=== PATIENT | female | born 1990 | race Caucasian/White ===

== ENCOUNTER 2019-10-17 17:31 | Emergency (ER) | payer BC ==
[~2019-10-17] VITALS: Ht 157.5 cm; Wt 158.8 kg
[2019-10-17] MEDS ORDERED: HYDROCODONE/APAP 10MG-325MG TAB PO ONE ×2 (17:45→20:15)
--- NOTE | 2019-10-17 18:29 | Diagnostic Imaging Report ---
ELBOW LEFT AP LAT -2 views HISTORY: Pain status post fall. COMPARISON: None available. FINDINGS: Bones: Comminuted displaced fracture of the distal humeral diaphysis with butterfly fragment and ventral lateral angulation and mild overriding. Joints: The joint spaces are preserved. Soft tissues: The soft tissues appear unremarkable. IMPRESSION: Comminuted displaced fracture of the distal humeral diaphysis with butterfly fragment and ventral lateral angulation and mild overriding. Signed by: Dr. Claus Jacome M.D. on 10/17/2019 6:27 PM
--- NOTE | 2019-10-17 19:08 | Diagnostic Imaging Report ---
HUMERUS RIGHT 2+VIEWS - 3 views HISTORY: Pain status post fall. COMPARISON: None available. FINDINGS: Bones: Comminuted displaced fracture of the distal humeral diaphysis with butterfly fragment and ventral lateral angulation and mild overriding. Joints: The joint spaces are preserved. Soft tissues: The soft tissues appear unremarkable. IMPRESSION: Comminuted displaced fracture of the distal humeral diaphysis with butterfly fragment and ventral lateral angulation and mild overriding. Signed by: Dr. Claus Jacome M.D. on 10/17/2019 7:05 PM
[2019-10-17 20:41] VITALS: BP 150/108
[2019-10-23] MEDS ORDERED: NORCO 5-325 TA1 EACH PO (14:52)
== END 2019-10-17 21:01 | disposition home or self-care (01) ==
LOC: ER 17:31
DX: S42.301A Unspecified fracture of shaft of humerus, right arm, initial encounter for closed fracture (principal); M25.522 Pain in left elbow; W01.0XXA Fall on same level from slipping, tripping and stumbling without subsequent striking against object, initial encounter; Y92.008 Other place in unspecified non-institutional (private) residence as the place of occurrence of the external cause
CPT/HCPCS: 99283

== ENCOUNTER → 2019-10-24 | Day surgery (SDC) | payer BC ==
[~2019-10-24] MED LIST: ACETAMINOPHEN 1000 MG/100 ML IV ONE; CEFAZOLIN SOD 1 GM/NS 50ML 100 ML IV ONE; DESFLURANE 240 ML BTL INH ONE; DEXAMETHASONE SOD PHOS INJ 4 MG/ML VIAL ONE; FENTANYL CITRATE/PF 100MCG/2 ML INJ ONE; KETOROLAC TROMETHAMINE 30 MG/ML VIAL ONE; LIDOCAINE HCL 2% LOCAL INJ 5 ML SDV VIAL INJ ONE; MIDAZOLAM HCL 2 MG/2 ML VIAL ONE; MORPHINE SULFATE INJ 10 MG/ML ONE; NORCO 5-325 TA1 EACH PO; ONDANSETRON HCL INJ 2MG/ML 2ML 2 MG/ML VIAL ONE; PROPOFOL IV EMULSION 10 MG/ML 20 ML VIAL ONE; ROCURONIUM BROMIDE 10 MG/ML 5ML VIAL ONE; SUCCINYLCHOLINE CHLORIDE 20 MG/ML 10ML VIAL ONE
--- OUTSIDE RECORDS SUMMARY | 2019-10-24 05:33 | XMS REPORT ---
Author 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 Allergies, Adverse Reactions, Alerts This patient has no known allergies or adverse reactions. Medications This patient has no known medications. Results Test Description Test Time Test Comments Text Results Atomic Results Result Comments HUMERUS RIGHT 2+VIEWS 2019-10-17 19:04:00 [facility] [address] [place] [id number] Patient Name: GERONIMO ALEXANDRE MR #: [id number] : 1990 Age/Sex: 29/F Req #: [id number] Adm Physician: Ordered by: CLAUDINE LERNER [employer] Report #: [id number] Location: ER Room/Bed: Procedure: [id number] DX/HUMERUS RIGHT 2+VIEWS Exam Date: 10/17/19 Exam Time: 1820 REPORT STATUS: Signed HUMERUS RIGHT 2+VIEWS - 3 views HISTORY: Pain status post fall. COMPARISON: None available. FINDINGS: Bones: Comminuted displaced fracture of the distal humeral diaphysis with butterfly fragment and ventral lateral angulation and mild overriding. Joints: The joint spaces are preserved. Soft tissues: The soft tissues appear unremarkable. IMPRESSION: Comminuted displaced fracture of the distal humeral diaphysis with butterfly fragment and ventral lateral angulation and mild overriding. Signed by: Dr. Claus Gamez M.D. on 10/17/2019 7:05 PM Dictated By: DEMETRIA GAMEZ MD, MD 04 Transcribed By: ARMIN on 10/17/191904 COPY TO: CLAUDINE LERNER NP ELBOW LEFT AP LAT 2019-10-17 18:18:00 [place] [address] Patient Name: GERONIMO ALEXANDRE MR #: [id number] : 1990 Age/Sex: 29/F Req #: [id number] Adm Physician: Ordered by: CLAUDINE LERNER NP Report #: [id number] Location: ER Room/Bed: Procedure: [id number] DX/ELBOW LEFT AP LAT Exam Date: 10/17/19 Exam Time: 1800 REPORT STATUS: Signed ELBOW LEFT AP LAT -2 views HISTORY: Pain stat us post fall. COMPARISON: None available. FINDINGS: Bones: Comminuted displaced fracture of the distal humeral diaphysis with butterfly fragment and ventral lateral angulation and mild overriding. Joints: The joint spaces are preserved. Soft tissues: The soft tissues appear unremarkable. IMPRESSION: Comminuted displaced fracture of the distal humeral diaphysis with butterfly fragment and ventral lateral angulation and mild overriding. Signed by: Dr. Claus Gamez M.D. on 10/17/2019 6:27 PM Dictated By: DEMETRIA GAMEZ MD, MD 26 Transcribed By: ARMIN on 10/17/191826 COPY TO: CLAUDINE LERNER NP
[2019-10-24 12:00] VITALS: BP 117/64
--- NOTE | 2019-10-24 19:40 | NUR ---
PREOPERATIVE DIAGNOSIS: Left Distal Humerus Shaft Fracture POSTOPERATIVE DIAGNOSIS: Left Distal Humerus Shaft Fracture OPERATIONS PERFORMED: Open reduction and internal fixation of left humerus shaft fracture with allograft, Flouroscopic interpretation SURGEON: Yanelis Stinson DO ANESTHESIA: General EBL: 20 cc TOURNIQUET TIME: 130 Min COMPLICATIONS: None. COMPONENTS: 2 3.5 Lag Screws, [place] 3.5 Variax 7 hole Compression Plate (Broad & Narrow), 7 x 3.5 Locking Screws, 5 x 3.5 Cortical Screws CLINICAL SUMMARY: The patient is a 29 -year-old right-hand dominant female who sustained a mechanical fall resulting in a fracture to the left humeral shaft OPERATION: The patient was brought to the operating table and placed in supine position and administered general anesthetic by the anesthesia. Preoperative antibiotics were provided. Once adequate anesthesia had been obtained, the right upper extremity was prepped and draped in the usual sterile manner. The pa tient received preoperative antibiotics. A sterile tourniquet was placed around the right upper extremity. The upper extremity was then elevated and exsanguinated using an Esmarch dressing. The tourniquet was elevated to 250 mmHg. The distal extent of the deltopectoral approach was extend to the lateral side of the biceps. Care was taken to avoid the radial nerve. It was carefully dissected and protected throughout the procedure. Upon exposure of the fracture site, there was extensive callus formation that required removal to properly orient the fragements. After extensive debridement, the fragments were reduced and fixed with the above mentioned hardware. 5 cc of DBX Bone Putty was placed around the fracture site to augment healing. Tolerable placement of hardware and anatomic reduction of the fracture was obtained. The incision was thoroughly irrigated and homeostasis was maintained with electrocautery. The subcutaneous tissue was closed with a 2-0 vicryl and the skin was closed with a 3-0 monocryl. The skin was cleaned and an aquacel was placed over the incision. 10 cc of local anesthetic was placed within the incision. The arm was placed in a posterior splint. The tourniquet was released. The fingers were immediately pink. The patient was awakened and taken to the recovery room in good condition. There were no operative complications. The patient tolerated the procedure well. Post operatively, the patient was examined and found to be neurovascularly intact.
--- NOTE | 2019-10-24 19:42 | NUR ---
ORTHOPEDIC OPERATIVE NOTE PREOPERATIVE DIAGNOSIS: Left Distal Humerus Shaft Fracture POSTOPERATIVE DIAGNOSIS: Left Distal Humerus Shaft Fracture OPERATIONS PERFORMED: Open reduction and internal fixation of left humerus shaft fracture with allograft, Flouroscopic interpretation SURGEON: Yanelis Stinson DO ANESTHESIA: General EBL: 20 cc TOURNIQUET TIME: 130 Min COMPLICATIONS: None. COMPONENTS: 2 3.5 Lag Screws, [place] 3.5 Variax 7 hole Compression Plate (Broad & Narrow), 7 x 3.5 Locking Screws, 5 x 3.5 Cortical Screws CLINICAL SUMMARY: The patient is a 29 -year-old right-hand dominant female who sustained a mechanical fall resulting in a fracture to the left humeral shaft OPERATION: The patient was brought to the operating table and placed in supine position and administered general anesthetic by the anesthesia. Preoperative antibiotics were provided. Once adequate anesthesia had been obtained, the LEFT upper extremity was prepped and draped in the usual sterile manner. The patient received preoperative antibiotics. A sterile tourniquet was placed around the LEFT upper extremity. The upper extremity was then elevated and exsanguinated using an Esmarch dressing. The tourniquet was elevated to 250 mmHg. The distal extent of the deltopectoral approach was extend to the lateral side of the biceps. Care was taken to avoid the radial nerve. It was c arefully dissected and protected throughout the procedure. Upon exposure of the fracture site, there was extensive callus formation that required removal to properly orient the fragements. After extensive debridement, the fragments were reduced and fixed with the above mentioned hardware. Due to the patient's habitus and weight of her arm, 90-90 plating was used to ensure at least 3 screws were secured proximally and distally to the fracture site. 5 cc of DBX Bone Putty was placed around the fracture site to augment healing. Tolerable placement of hardware and anatomic reduction of the fracture was obtained. The incision was thoroughly irrigated and homeostasis was maintained with electrocautery. The subcutaneous tissue was closed with a 2-0 vicryl and the skin was closed with a 3-0 monocryl. The skin was cleaned and an aquacel was placed over the incision. 10 cc of local anesthetic was placed within the incision. The arm was placed in a posterior splint. The tourniquet was released. The fingers were immediately pink. The patient was awakened and taken to the recovery room in good condition. There were no operative complications. The patient tolerated the procedure well. Post operatively, the patient was examined and found to be n eurovascularly intact.
== END | disposition home or self-care (01) ==
LOC: OR 05:31
PROVIDERS: ATTEND Orthopaedic Surgery
DX: S42.302A Unspecified fracture of shaft of humerus, left arm, initial encounter for closed fracture (principal); E66.01 Morbid (severe) obesity due to excess calories; N20.0 Calculus of kidney; W19.XXXA Unspecified fall, initial encounter; Z68.44 Body mass index [BMI] 60.0-69.9, adult; Z86.718 Personal history of other venous thrombosis and embolism
CPT/HCPCS: 24515; 81025; C1713; J0131; J0330; J0690; J1100; J1885; J2001; J2250; J2270; J2405; J2704; J3010

== ENCOUNTER 2019-11-28 16:00 | Outpatient (RCR) | payer BC ==
[~2019-11-28 16:00] MED LIST changes: -ACETAMINOPHEN 1000 MG/100 ML IV ONE; -CEFAZOLIN SOD 1 GM/NS 50ML 100 ML IV ONE; -DESFLURANE 240 ML BTL INH ONE; -DEXAMETHASONE SOD PHOS INJ 4 MG/ML VIAL ONE; -FENTANYL CITRATE/PF 100MCG/2 ML INJ ONE; -KETOROLAC TROMETHAMINE 30 MG/ML VIAL ONE; -LIDOCAINE HCL 2% LOCAL INJ 5 ML SDV VIAL INJ ONE; -MIDAZOLAM HCL 2 MG/2 ML VIAL ONE; -MORPHINE SULFATE INJ 10 MG/ML ONE; -ONDANSETRON HCL INJ 2MG/ML 2ML 2 MG/ML VIAL ONE; -PROPOFOL IV EMULSION 10 MG/ML 20 ML VIAL ONE; -ROCURONIUM BROMIDE 10 MG/ML 5ML VIAL ONE; -SUCCINYLCHOLINE CHLORIDE 20 MG/ML 10ML VIAL ONE
== END 2019-12-04 ==
LOC: OT 16:00
PROVIDERS: ATTEND Orthopaedic Surgery
DX: S42.302A Unspecified fracture of shaft of humerus, left arm, initial encounter for closed fracture (principal); G56.32 Lesion of radial nerve, left upper limb
CPT/HCPCS: 97110; 97161; 97165; G0283

== ENCOUNTER 2020-01-02 12:56 | Outpatient (RCR) | payer BC | END 2020-01-03 | LOC: OT 12:56 | PROVIDERS: ATTEND Orthopaedic Surgery | DX: G56.32 Lesion of radial nerve, left upper limb (principal); S42.302A Unspecified fracture of shaft of humerus, left arm, initial encounter for closed fracture; M25.612 Stiffness of left shoulder, not elsewhere classified; M62.81 Muscle weakness (generalized) | CPT/HCPCS: 97010 ×3; 97035; 97110 ×4; 97140 ×2; G0283 ×2 ==